=== PATIENT | male | born 1930 | race Caucasian/White ===

== ENCOUNTER 2016-09-22 10:48 | Day surgery (SDC) | payer OTHER, MEDICARE ==
[~2016-09-22 10:48] MED LIST: BUPIVACAINE HCL 0.25 % INJ/PF (2.5 MG/1 ML) 30 ML VIAL ONE; CLINDAMYCIN 600 MG/D5W RTU 600 MG/50 ML RTUPB IV PRN; LIDOCAINE 2% INJ-PF (20 MG/ML) 10 ML AMPUL ONE; ONDANSETRON HCL INJ/PF 4 MG/2 ML SDV ONE; SUCCINYLCHOLINE CHLORIDE INJ 200 MG/10 ML VIAL ONE
[2016-09-22 11:37] LABS: APPEARANCE,URINE SLIGHTLY-CLOUDY; BILIRUBIN,URINE NEGATIVE (NEGATIVE); GLUCOSE, URINE NEGATIVE (NEGATIVE); KETONES,URINE NEGATIVE (NEGATIVE); LEUKOCYTE ESTERASE,URINE NEGATIVE (NEGATIVE); NITRITE,URINE NEGATIVE (NEGATIVE); PROTEIN,URINE NEGATIVE (NEGATIVE); URINE SPECIFIC GRAVITY 1.015; UROBILINOGEN,URINE NEGATIVE mg/dL (<2.0)
[2016-09-22 11:43] LABS: HEMATOCRIT 35.4 % (37.9-51.0); HEMOGLOBIN 12.4 g/dL (13.5-17.0); HGB HCT DIFFERENCE 1.8; MEAN CORPUSCULAR HEMOGLOBIN 31.1 pg (27.0-33.4); MEAN CORPUSCULAR HGB CONC 34.9 g/dL (32.0-36.0); MEAN CORPUSCULAR VOLUME 89 fl (80-97); RED BLOOD COUNT 3.97 10^6/uL (4.35-5.55); RED CELL DISTRIBUTION WIDTH 12.9 % (11.5-14.0); WHITE BLOOD COUNT 3.7 10^3/uL (4.0-10.5)
[2016-09-22 11:48] LABS: PARTIAL THROMBOPLASTIN TIME 28.8 SEC (23.5-35.8)
[2016-09-22 11:52] LABS: ANION GAP 6 (5-19); BLOOD UREA NITROGEN 18 mg/dL (7-20); CALCIUM 10.8 mg/dL (8.4-10.2); CARBON DIOXIDE 28 mmol/L (22-30); CHLORIDE 105 mmol/L (98-107); CREATININE RESULT 1.01 mg/dL (0.52-1.25); GLUCOSE 94 mg/dL (75-110); POTASSIUM 3.9 mmol/L (3.6-5.0); SODIUM 138.9 mmol/L (137-145)
[2016-09-22] MEDS ORDERED: FENTANYL CITRATE INJ/PF 100 MCG/2 ML AMPUL ONE (12:43)
[2016-09-22] MEDS ORDERED: MIDAZOLAM 2 MG/2 ML INJ ONE (12:44)
[2016-09-22] MEDS ORDERED: PROPOFOL INJ 200 MG/20 ML VIAL IV ONE (12:44)
[2016-09-22] MEDS ORDERED: EPHEDRINE SULFATE INJ 50 MG/1 ML AMPULE ONE (12:44)
[2016-09-22] MEDS ORDERED: INFLUENZA ADLT QUAD (36MOS+) 2016-17 VAC 0.5 ML SYR IM PRN (13:17)
[2016-09-22] MEDS ORDERED: FENTANYL CITRATE INJ/PF 100 MCG/2 ML AMPUL IV PRN ×3 (14:02)
[2016-09-22] MEDS ORDERED: MORPHINE SULFATE 10 MG/ML INJ IV PRN (14:02)
[2016-09-22] MEDS ORDERED: PROMETHAZINE HCL INJ 25 MG/1 ML VIAL IV PRN ×2 (14:02)
[2016-09-22] MEDS ORDERED: MEPERIDINE HCL/PF INJ 25 MG/1 ML DISP.SYRIN IV PRN (14:02)
[2016-09-22] MEDS ORDERED: DIPHENHYDRAMINE HCL 50 MG/ML VIAL IV PRN (14:02)
[2016-09-22] MEDS ORDERED: OXYCODONE-ACETAMINOPHEN 5-325 MG TABLET PO PRN ×2 (14:02)
--- NOTE | 2016-09-22 14:24 | Operative Report ---
Operative Report DATE OF SURGERY: 09/22/16 PREOPERATIVE DIAGNOSIS: Pathologic fracture, right humerus OPERATION: Open biopsy SURGEON: KODAK SOLORZANO ANESTHESIA: GA TISSUE REMOVED OR ALTERED: Tissue to pathology, cultures to microbiology ESTIMATED BLOOD LOSS: 100 PROCEDURE: With the patient in a left lateral decubitus position on the operating table the right upper extremity is prepped and draped in sterile fashion. A sterile tourniquet was applied. Limb was elevated. Tourniquet inflated 250 torr. A longitudinal incision was made over the lateral humeral condyle and sharp dissection is carried incision through the underlying fascia. Deep to the fascia is a large amount of fish flesh type material. It's easily scooped out and sent to pathology.. Cultures are obtained. Turner used to take some deep aspect of this were interfaces with the underlying humerus. The underlying tumors has little in the way of mechanical integrity. This point the wounds irrigated. Gelfoam was placed into the depths of the wound. Superficial bleeding was controlled with hemostasis. The wound is then closed in layers using interrupted Vicryl followed by nylon. A sterile compressive dressing is applied with a posterior splint. The patient's returned to PACU in satisfactory condition.
[2016-09-22] MEDS ORDERED: OXYCODONE HCL IR 5 MG TABLET PO PRN (14:34)
[2016-09-22] MEDS ORDERED: ONDANSETRON 4 MG TAB.RAPDIS SL PRN (14:34)
[2016-09-22 16:40] VITALS: BP 137/75
--- NOTE | 2016-09-22 20:04 | EKG REPORT ---
SEVERITY:- ABNORMAL ECG - SINUS RHYTHM BORDERLINE LEFT AXIS DEVIATION : Confirmed by: Jose Cerrato 22-Sep-2016 20:03:46
== END 2016-09-22 16:35 | disposition home or self-care (01) ==
LOC: OROUT 10:48
PROVIDERS: ATTEND Orthopaedic Surgery
PROC: 0PBF0ZX Excision of Right Humeral Shaft, Open Approach, Diagnostic (ICD-10-PCS; principal; 2016-09-22 13:00)
DX: M84.421A Pathological fracture, right humerus, initial encounter for fracture (principal); C83.34 Diffuse large B-cell lymphoma, lymph nodes of axilla and upper limb; Z88.0 Allergy status to penicillin; Z79.899 Other long term (current) drug therapy; Z23 Encounter for immunization
CPT/HCPCS: 36415; 87070; 87205; 85027; 85610; 85730; 87075; 80048; 81001; 88342 ×2; 88341 ×2; 88305 ×2; 71010; 90686; 93005; 93010; 20245; 90471; J2250; J3010; J0330; J2405; J2704; J3490; 1710

== ENCOUNTER → 2016-10-12 | Outpatient (CLI) | payer MEDICARE, OTHER | LOC: RAD 17:56 | PROVIDERS: ATTEND Internal Medicine | DX: C83.38 Diffuse large B-cell lymphoma, lymph nodes of multiple sites (principal) | CPT/HCPCS: 78815; A9552 ==

== ENCOUNTER → 2017-01-14 | Outpatient (CLI) | payer MEDICARE, OTHER ==
--- NOTE | 2017-01-14 15:49 | RADIOLOGY REPORT (SQ) ---
EXAM DESCRIPTION: ELBOW RIGHT AP/LAT COMPLETED DATE/TIME: 01/14/2017 3:38 pm REASON FOR STUDY: PAIN IN RIGHT ELBOW M25.521 PAIN IN RIGHT ELBOW COMPARISON: None. NUMBER OF VIEWS: Two views. TECHNIQUE: AP and lateral radiographic images acquired of the right elbow. LIMITATIONS: None. FINDINGS: MINERALIZATION: Osteopenia. BONES: There appears to be a chronic fracture/destructive bony changes involving the distal right hum erus per report patient had fracture of this area June 2016. No comparison images are available. These changes do appear to be somewhat chronic. No other fractures are identified. JOINT: Degenerative changes noted in the elbow joint. Small put joint effusion. SOFT TISSUES: Soft tissue swelling about the elbow. No radiopaque foreign body. OTHER: No other significant finding. IMPRESSION: There is significant irregularity of the distal right humerus which may be related to pr ior fracture with subsequent bony remodeling as per patient there was a fracture this area in 2015 though no comparison images are available. This could also represent destructive bony lesions related to disease. No other fractures are identified. There is significant degenerative changes o f the elbow joint with small joint effusion. There is significant soft tissue swelling about the elb ow. TECHNICAL DOCUMENTATION: JOB ID: [id number] [employer]- All Rights Reserved
--- NOTE | 2017-01-14 15:53 | RADIOLOGY REPORT (SQ) ---
EXAM DESCRIPTION: FOREARM RIGHT COMPLETED DATE/TIME: 01/14/2017 3:38 pm REASON FOR STUDY: PAIN IN RIGHT ELBOW M25.521 PAIN IN RIGHT ELBOW COMPARISON: None. NUMBER OF VIEWS: Two views. TECHNIQUE: Two radiographic images acquired of the right forearm, including elbow and wrist in at le ast one projection. LIMITATIONS: None. FINDINGS: MINERALIZATION: Osteopenia. BONES: Do partially visualized destructive bony changes/ fracture with subsequent remodeling of the d istal humerus are partially visualized on this study. Degenerative changes noted in the elbow joint. No acute fracture dislocation identified within the forearm. SOFT TISSUES: Significant soft tissue swelling about the elbow joint. No radiopaque foreign body pre OTHER: No other significant finding. IMPRESSION: No acute fracture dislocation identified in the forearm. The destructive versus fractur e with bony remodeling in the distal right humerus are partially visualized on this study and better described on the dedicated elbow film. Soft tissue swelling about the elbow noted. Osteopenia. TECHNICAL DOCUMENTATION: JOB ID: [id number] [employer]- All Rights Reserved
== END ==
LOC: RAD 15:13
PROVIDERS: ATTEND Specialist
DX: M25.521 Pain in right elbow (principal); M85.831 Other specified disorders of bone density and structure, right forearm

== ENCOUNTER → 2017-01-21 | Outpatient (CLI) | payer MEDICARE, OTHER ==
--- NOTE | 2017-01-21 12:44 | XCELERA REPORT ---
[address] [address] Upper Extremity Venous Evaluation Name: NAILA ENGLISH Age: 86 yrs Gender: Male : 1930 Patient Status: Outpatient Patient Location: Study Date: 01/21/2017 10:48 AM Procedure: Unilateral duplex scan of the right upper extremity veins was performed, including responses to compression and other maneuvers. Reason For Study: RUE PAIN, SWELLING Ordering Physician: WIL HODGE Performed By: Linda Sawyer Right Side Venous Evaluation Normal vessel filling wall to wall, compression and augmentation as well as Colour flow down to the forearm veins. Interpretation Summary No duplex evidence of DVT or obstruction in the right upper extremity. : WIL HODGE > James Llanes
== END ==
LOC: SP 10:28
PROVIDERS: ATTEND Internal Medicine
DX: M79.609 Pain in unspecified limb (principal); M79.89 Other specified soft tissue disorders
CPT/HCPCS: 93971

== ENCOUNTER 2017-02-11 09:49 | Inpatient (IN) | payer MEDICARE, OTHER ==
[2017-02-11 12:21] LABS: ABSOLUTE EOSINOPHILS # (AUTO) 0.1 10^3/uL (0.0-0.6); ABSOLUTE LYMPHOCYTES (AUTO) 0.6 10^3/uL (0.5-4.7); ABSOLUTE MONOCYTES (AUTO) 0.9 10^3/uL (0.1-1.4); ABSOLUTE NEUT (AUTO) 3.9 10^3/uL (1.7-8.2); BASOPHILS % (AUTO) 0.6 % (0-2); HEMOGLOBIN 11.8 g/dL (13.5-17.0); HGB HCT DIFFERENCE 0.4; LYMPHOCYTES % (AUTO) 10.6 % (13-45); MEAN CORPUSCULAR HEMOGLOBIN 30.1 pg (27.0-33.4); MEAN CORPUSCULAR HGB CONC 33.7 g/dL (32.0-36.0); MEAN CORPUSCULAR VOLUME 89 fl (80-97); MONOCYTES % (AUTO) 17.3 % (3-13); RED BLOOD COUNT 3.92 10^6/uL (4.35-5.55); RED CELL DISTRIBUTION WIDTH 14.2 % (11.5-14.0); SEGMENTED NEUTROPHILS % (AUTO) 70.5 % (42-78); WHITE BLOOD COUNT 5.5 10^3/uL (4.0-10.5)
[2017-02-11 12:27] LABS: PROTHROMBIN TIME 13.3 SEC (11.4-15.4)
[2017-02-11 12:28] LABS: PARTIAL THROMBOPLASTIN TIME 31.6 SEC (23.5-35.8)
[2017-02-11] MEDS ORDERED: ACETAMINOPHEN 325 MG TABLET PO PRN (12:35)
[2017-02-11] MEDS ORDERED: ONDANSETRON HCL INJ/PF 4 MG/2 ML SDV IV PRN (12:40)
[2017-02-11 12:42] LABS: ANION GAP 10 (5-19); BLOOD UREA NITROGEN 21 mg/dL (7-20); CALCIUM 8.7 mg/dL (8.4-10.2); CARBON DIOXIDE 24 mmol/L (22-30); CHLORIDE 101 mmol/L (98-107); CREATININE RESULT 1.03 mg/dL (0.52-1.25); GLUCOSE 68 mg/dL (75-110); POTASSIUM 3.9 mmol/L (3.6-5.0); SODIUM 134.5 mmol/L (137-145)
[2017-02-11] MEDS ORDERED: VANCOMYCIN HCL INJ 1000 MG VIAL IV SCH (12:45)
--- NOTE | 2017-02-11 13:09 | PDOC H&P ---
History of Present Illness Admission Date/PCP: 02/11/17 09:49 WIL HODGE MD Patient complains of: Pain and swelling on the right upper extremity History of Present Illness: NAILA ENGLISH is a 86 year old male, with history of B-cell lymphoma sustained a pathologic fracture of the upper extremity several months ago were a biopsy revealed B-cell lymphoma on the fracture site on September 2016. Patient at that time had some swelling. Patient was started on chemotherapy and started to improve from then. Patient had an episode of a fall last month without any significant injury as reported by the patient and the family on x-rays. 3 weeks ago the patient accidentally jammed his right upper extremity to the door and again no injuries were noted on films. Patient started to develop increasing pain and swelling since then with redness and pitting edema. There is no definite chills or fever nor any purulent drainage. Patient apparently had some scabbing and open wound initially that were healing. Patient was started on antibiotic for cellulitis. Patient had a venous Doppler performed 2- 3 weeks ago showing no evidence of deep venous thrombosis. However despite the antibiotics the swelling persisted and increased as well as the discomfort. The patient was seen by his oncologist and eventually directly admitted the patient after failing antibiotic therapy. His chemotherapy dose was held. Past Medical History Cardiac Medical History: Denies: Coronary Artery Disease, Myocardial Infarction, Hypertension Pulmonary Medical History: Denies: Asthma, Bronchitis, Chronic Obstructive Pulmonary Disease (COPD), Pneumonia Neurological Medical History: Denies: Seizures Musculoskeltal Medical History: Denies: Arthritis Hematology: Denies: Anemia Past Surgical History Past Surgical History: Reports: Herniorrhaphy, Other - Cataract surgery Social History Information Source: Patient Smoking Status: Never Smoker Frequency of Alcohol Use: Rare Hx Recreational Drug Use: No Drugs: None Hx Prescription Drug Abuse: No Family History Family History: CAD Parental Family History Reviewed: Yes Children Family History Reviewed: Yes Sibling(s) Family History Reviewed.: Yes Medication/Allergy Home Medications: Finasteride [Proscar 5 mg Tablet] 5 mg PO DAILY 02/11/17 Pravastatin Sodium [Pravachol] 20 mg PO DAILY 02/11/17 Allergies/Adverse Reactions: Penicillins Allergy (Verified 09/22/16 14:34) Review of Systems Constitutional: ABSENT: chills, fever(s), headache(s), weight gain, weight loss Eyes: ABSENT: visual disturbances Ears: ABSENT: hearing changes Cardiovascular: PRESENT: edema - Right upper extremity. ABSENT: chest pain, dyspnea on exertion, orthropnea, palpitations Respiratory: ABSENT: cough, dyspnea, hemoptysis, sputum Gastrointestinal: ABSENT: abdominal pain, constipation, diarrhea, dysphagia, hematemesis, hematochezia, melena, nausea, vomiting Genitourinary: ABSENT: dysuria, hematuria Musculoskeletal: ABSENT: joint swelling Integumentary: ABSENT: pruritus Neurological: ABSENT: abnormal gait, abnormal speech, confusion, dizziness, focal weakness, syncope Psychiatric: ABSENT: anxiety, depression, homidical ideation, suicidal ideation Endocrine: ABSENT: cold intolerance, heat intolerance, polydipsia, polyuria Hematologic/Lymphatic: ABSENT: easy bleeding, easy bruising Physical Exam Vital Signs: Temp Pulse Resp BP Pulse Ox 97.2 F 91 20 99/62 L 97 02/11/17 10:23 02/11/17 10:23 02/11/17 10:23 02/11/17 10:23 02/11/17 10:23 Intake & Output 02/10/17 02/11/17 02/12/17 06:59 06:59 06:59 Weight 76.289 kg General appearance: PRESENT: no acute distress, cooperative, well-nourished Head exam: PRESENT: atraumatic, normocephalic Eye exam: PRESENT: conjunctiva pink, EOMI, PERRLA. ABSENT: scleral icterus Ear exam: PRESENT: normal external ear exam. ABSENT: drainage Mouth exam: PRESENT: moist, neck supple, tongue midline Neck exam: ABSENT: carotid bruit, JVD, lymphadenopathy, thyromegaly Respiratory exam: PRESENT: clear to auscultation mayur. ABSENT: rales, rhonchi, wheezes Cardiovascular exam: PRESENT: RRR, +S1, +S2. ABSENT: diastolic murmur, rubs, systolic murmur Pulses: PRESENT: normal dorsalis pedis pul Vascular exam: PRESENT: normal capillary refill GI/Abdominal exam: PRESENT: normal bowel sounds, soft. ABSENT: distended, guarding, mass, organolmegaly, rebound, tenderness Rectal exam: PRESENT: deferred Extremities exam: PRESENT: full ROM, +2 edema - Right upper extremity with significant induration and nodularity.. ABSENT: calf tenderness, clubbing, pedal edema Neurological exam: PRESENT: alert, awake, oriented to person, oriented to place , oriented to time, oriented to situation Psychiatric exam: PRESENT: appropriate affect, normal mood. ABSENT: homicidal ideation, suicidal ideation Focused psych exam: ABSENT: delusional Skin exam: PRESENT: dry, erythema - Right upper extremity from elbow to the forearm, intact, warm. ABSENT: cyanosis, rash Results Laboratory Results: 02/11/17 12:03 02/11/17 12:03 02/11/17 02/11/17 12:03 12:03 WBC 5.5 RBC 3.92 L Hgb 11.8 L Hct 35.0 L MCV 89 MCH 30.1 MCHC 33.7 RDW 14.2 H Plt Count 170 Seg Neutrophils % 70.5 Lymphocytes % 10.6 L Monocytes % 17.3 H Eosinophils % 1.0 Basophils % 0.6 Absolute Neutrophils 3.9 Absolute Lymphocytes 0.6 Absolute Monocytes 0.9 Absolute Eosinophils 0.1 Absolute Basophils 0.0 Sodium 134.5 L Potassium 3.9 Chloride 101 Carbon Dioxide 24 Anion Gap 10 BUN 21 H Creatinine 1.03 Est GFR ( Amer) > 60 Est GFR (Non-Af Amer) > 60 Glucose 68 L Calcium 8.7 Assessment & Plan - Diagnosis (1) Cellulitis of right upper extremity Is this a current diagnosis for this admission?: Yes (2) Abscess of right upper extremity Is this a current diagnosis for this admission?: Yes (3) Pathologic fracture Qualifiers: Pathology associated with fracture: neoplastic disease Site of pathological fracture: unspecified site Encounter type: sequela Qualified Code(s): M84.50XS - Pathological fracture in neoplastic disease, unspecified site, sequela Is this a current diagnosis for this admission?: Yes (4) BPH (benign prostatic hyperplasia) Qualifiers: Lower urinary tract symptom presence: unspecified whether lower urinary tract symptoms present Qualified Code(s): N40.0 - Benign prostatic hyperplasia without lower urinary tract symptoms Is this a current diagnosis for this admission?: Yes (5) B-cell lymphoma Qualifiers: B-cell lymphoma type: unspecified B-cell Lymphoma site: unspecified region Qualified Code(s): C85.10 - Unspecified B-cell lymphoma, unspecified site Is this a current diagnosis for this admission?: Yes - Time Time Spent: 50 to 70 Minutes - Inpatient Certification Based on my medical assessment, after consideration of the patient's comorbidities, presenting symptoms, or acuity I expect that the services needed warrant INPATIENT care.: Yes I certify that my determination is in accordance with my understanding of Medicare's requirements for reasonable and necessary INPATIENT services [42 CFR 412.3e].: Yes Medical Necessity: Failure to Improve With Outpatient Therapy, Need for IV Antibiotics, Risk of Complication if Not Cared For in Hospital Post Hospital Care: D/C Spray Drier Documentation - Plan Summary Plan Summary: Patient will be admitted to telemetry floor. We will culture the patient's blood and begin intravenous antibiotic with Invanz and vancomycin. We will consult general surgery for evaluation for abscess and incision and drainage. In the meantime we will consult Dr. Hodge for the lymphoma as well. Patient will be on DVT prophylaxis. We will continue his home medications. Further testing depends in the initial evaluation and response to treatment as outlined above.
[2017-02-11] MEDS: VANCOMYCIN HCL 750 MG in DEXTROSE 5%-WATER 250 ML IV SCH (13:54)
[2017-02-11] MEDS: NORMAL SALINE 1000 ML 1,000 ML IV PRN (13:55)
[2017-02-11] MEDS ORDERED: ERTAPENEM SODIUM INJ 1 GM VIAL IV SCH (15:00)
[2017-02-11] MEDS: ERTAPENEM SODIUM 1 GM in NORMAL SALINE 50 ML IV SCH (15:55)
[2017-02-11] MEDS: HYDROCODONE/ACETAMINOPHEN 5-325 MG TABLET PO PRN ×2 (16:08→20:03)
[2017-02-11] MEDS: DOCUSATE SODIUM 100 MG CAPSULE PO SCH (17:56)
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
[2017-02-12] MEDS: HYDROCODONE/ACETAMINOPHEN 5-325 MG TABLET PO PRN ×6 (00:13→23:51)
[2017-02-12] MEDS: VANCOMYCIN HCL 750 MG in DEXTROSE 5%-WATER 250 ML IV SCH ×2 (02:40→13:17)
[2017-02-12] MEDS: LANSOPRAZOLE 30 MG TAB.RAP.DR PO SCH (06:07)
[2017-02-12 06:51] LABS: HEMATOCRIT 34.3 % (37.9-51.0); HEMOGLOBIN 11.4 g/dL (13.5-17.0); HGB HCT DIFFERENCE -0.1; MEAN CORPUSCULAR HEMOGLOBIN 30.3 pg (27.0-33.4); MEAN CORPUSCULAR HGB CONC 33.3 g/dL (32.0-36.0); MEAN CORPUSCULAR VOLUME 91 fl (80-97); RED BLOOD COUNT 3.77 10^6/uL (4.35-5.55); RED CELL DISTRIBUTION WIDTH 14.6 % (11.5-14.0); WHITE BLOOD COUNT 4.1 10^3/uL (4.0-10.5)
[2017-02-12 07:06] LABS: ANION GAP 6 (5-19); BLOOD UREA NITROGEN 16 mg/dL (7-20); CALCIUM 8.9 mg/dL (8.4-10.2); CARBON DIOXIDE 26 mmol/L (22-30); CHLORIDE 104 mmol/L (98-107); CREATININE RESULT 0.91 mg/dL (0.52-1.25); GLUCOSE 71 mg/dL (75-110); POTASSIUM 4.2 mmol/L (3.6-5.0); SODIUM 135.9 mmol/L (137-145)
[2017-02-12 07:09] LABS: BASOPHILS % (MANUAL) 1 % (0-2); EOSINOPHILS % (MANUAL) 4 % (0-6); LYMPHOCYTES % (MANUAL) 5 % (13-45); TOTAL CELLS COUNTED 100
[2017-02-12 07:13] LABS: ANISOCYTOSIS SLIGHT; OVALOCYTES SLIGHT; PLATELET CLUMPS PRESENT; POIKILOCYTOSIS SLIGHT; POLYCHROMASIA SLIGHT; TARGET CELLS SLIGHT
--- NOTE | 2017-02-12 07:58 | PDOC CONSULTATION ---
Consultation Consult Date: 02/12/17 Attending physician:: ZAC MEREDITH Consult reason:: R arm cellulutis, DLBCL of RUE History of Present Illness Admission Date/PCP: 02/11/17 09:49 WIL HODGE MD Patient complains of: R arm pain, swelling History of Present Illness: 86-year-old male well-known to our oncology clinic who originally presented about 4 months ago with pathologic fracture of the right distal humerus. Initially it was felt to be an osteoporotic fracture but ultimately the patient was referred to Dr. Yang who did a bone biopsy, and this indicated diffuse large B-cell lymphoma, this diagnosis was confirmed by [facility], because of that diagnosis we initiated him on chemotherapy with Rituxan, bendamustine. He is actually been tolerating the therapy very well. Initially the arm was very swollen and the swelling went down, he began getting back some utility of his arm, but the swelling never fully went back to normal. Over the last 2 weeks however, the swelling is increased considerably, and over the last 7 days the arm has doubled in size. Last week he did place him on oral antibiotics. Prior to that we had ultrasound of the upper extremity as well as x-rays done, ultrasound was negative for blood clots, x-rays were negative for fracture. I was concerned that he had some sort of resistant cellulitis so we admitted him for IV antibiotics under the hospitalist team. He has been seen by general surgery, he is also going to be seen by orthopedic surgery today. 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 Musculoskeltal Medical History: Denies: Arthritis Hematology: Denies: Anemia Past Surgical History Past Surgical History: Reports: Herniorrhaphy, Other - Cataract surgery, biopsy of the right upper humerus Social History Smoking Status: Never Smoker Frequency of Alcohol Use: Rare Hx Recreational Drug Use: No Drugs: None Hx Prescription Drug Abuse: No Family History Family History: CAD Parental Family History Reviewed: Yes Children Family History Reviewed: Yes Sibling(s) Family History Reviewed.: Yes Medication/Allergy Home Medications: Finasteride [Proscar 5 mg Tablet] 5 mg PO DAILY 02/11/17 Hydrocodone/Acetaminophen [[place] 5-325 Tablet] 1 each PO Q4 PRN 02/11/17 Pravastatin Sodium [Pravachol] 20 mg PO DAILY 02/11/17 Allergies/Adverse Reactions: Penicillins Allergy (Verified 09/22/16 14:34) Review of Systems Constitutional: ABSENT: chills, fever(s), headache(s), weight gain, weight loss Eyes: ABSENT: visual disturbances Ears: ABSENT: hearing changes Cardiovascular: ABSENT: chest pain, dyspnea on exertion, edema, orthropnea, palpitations Respiratory: ABSENT: cough, hemoptysis Gastrointestinal: ABSENT: abdominal pain, constipation, diarrhea, hematemesis, hematochezia, nausea, vomiting Genitourinary: ABSENT: dysuria, hematuria Musculoskeletal: PRESENT: other - Right arm pain Integumentary: ABSENT: rash, wounds Neurological: ABSENT: abnormal gait, abnormal speech, confusion, dizziness, focal weakness, syncope Psychiatric: ABSENT: anxiety, depression, homidical ideation, suicidal ideation Endocrine: ABSENT: cold intolerance, heat intolerance, polydipsia, polyuria Hematologic/Lymphatic: ABSENT: easy bleeding, easy bruising Physical Exam Vital Signs: Temp Pulse Resp BP Pulse Ox 97.6 F 81 20 108/63 94 02/12/17 03:51 02/12/17 07:00 02/12/17 03:51 02/12/17 03:51 02/12/17 03:51 Intake & Output 02/11/17 02/12/17 02/13/17 06:59 06:59 06:59 Intake Total 1390 120 Balance 1390 120 Weight 78 kg General appearance: PRESENT: no acute distress, well-developed, well-nourished Head exam: PRESENT: atraumatic, normocephalic Eye exam: PRESENT: conjunctiva pink, EOMI, PERRLA. ABSENT: scleral icterus Ear exam: PRESENT: normal external ear exam Mouth exam: PRESENT: moist, tongue midline Neck exam: ABSENT: carotid bruit, JVD, lymphadenopathy, thyromegaly Respiratory exam: PRESENT: clear to auscultation mayur. ABSENT: rales, rhonchi, wheezes Cardiovascular exam: PRESENT: RRR. ABSENT: diastolic murmur, rubs, systolic murmur Pulses: PRESENT: normal dorsalis pedis pul Vascular exam: PRESENT: normal capillary refill GI/Abdominal exam: PRESENT: normal bowel sounds, soft. ABSENT: distended, guarding, mass, organolmegaly, rebound, tenderness Rectal exam: PRESENT: deferred Extremities exam: PRESENT: other Musculoskeletal exam: PRESENT: other - Extreme right upper extremity swelling Neurological exam: PRESENT: alert, awake, oriented to person, oriented to place , oriented to time, oriented to situation, CN II-XII grossly intact. ABSENT: motor sensory deficit Psychiatric exam: PRESENT: appropriate affect, normal mood. ABSENT: homicidal ideation, suicidal ideation Skin exam: PRESENT: dry, intact, warm. ABSENT: cyanosis, rash Results Laboratory Results: 02/12/17 06:08 02/12/17 06:08 02/11/17 02/11/17 02/12/17 12:03 12:03 06:08 WBC 5.5 4.1 RBC 3.92 L 3.77 L Hgb 11.8 L 11.4 L Hct 35.0 L 34.3 L MCV 89 91 MCH 30.1 30.3 MCHC 33.7 33.3 RDW 14.2 H 14.6 H Plt Count 170 164 Seg Neutrophils % 70.5 Not Reportable Lymphocytes % 10.6 L Not Reportable Monocytes % 17.3 H Not Reportable Eosinophils % 1.0 Not Reportable Basophils % 0.6 Not Reportable Absolute Neutrophils 3.9 Not Reportable Absolute Lymphocytes 0.6 Not Reportable Absolute Monocytes 0.9 Not Reportable Absolute Eosinophils 0.1 Not Reportable Absolute Basophils 0.0 Not Reportable Sodium 134.5 L Potassium 3.9 Chloride 101 Carbon Dioxide 24 Anion Gap 10 BUN 21 H Creatinine 1.03 Est GFR ( Amer) > 60 Est GFR (Non-Af Amer) > 60 Glucose 68 L Calcium 8.7 02/12/17 06:08 WBC RBC Hgb Hct MCV MCH MCHC RDW Plt Count Seg Neutrophils % Lymphocytes % Monocytes % Eosinophils % Basophils % Absolute Neutrophils Absolute Lymphocytes Absolute Monocytes Absolute Eosinophils Absolute Basophils Sodium 135.9 L Potassium 4.2 Chloride 104 Carbon Dioxide 26 Anion Gap 6 BUN 16 Creatinine 0.91 Est GFR ( Amer) > 60 Est GFR (Non-Af Amer) > 60 Glucose 71 L Calcium 8.9 Assessment & Plan - Diagnosis (1) Cellulitis of right upper extremity Is this a current diagnosis for this admission?: YesPlan: Initially concern of infection, now on broad-spectrum antibiotics with ertapenem and vancomycin, cultures thus far negative but would continue both antibiotics until cultures are negative for 48 hours. It could be that it is only upper extremity lymphedema that is the cause, I have asked for Dr. Yang to come see him, I wonder if something like a CT of the upper extremity would be useful. 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 We will hold this cycle until he gets out of the hospital. - Time Time Spent: Greater than 70 Minutes Critical Time spent with patient: 35 or more minutes - Inpatient Certification Based on my medical assessment, after consideration of the patient's comorbidities, presenting symptoms, or acuity I expect that the services needed warrant INPATIENT care.: Yes I certify that my determination is in accordance with my understanding of Medicare's requirements for reasonable and necessary INPATIENT services [42 CFR 412.3e].: Yes Medical Necessity: Need for IV Antibiotics, Risk of Complication if Not Cared For in Hospital
[2017-02-12] MEDS: ENOXAPARIN SODIUM INJ 40 MG/0.4 ML DISP.SYRIN SUBCUT SCH (10:36)
[2017-02-12] MEDS: FINASTERIDE 5 MG TABLET PO SCH (10:37)
[2017-02-12] MEDS: DOCUSATE SODIUM 100 MG CAPSULE PO SCH ×2 (10:37→17:34)
--- NOTE | 2017-02-12 14:20 | PDOC PROGRESS REPORT ---
Subjective Progress Note for:: 02/12/17 Subjective:: Patient continues to have swelling on the upper extremity. No reported temperature spikes. Patient denies diarrhea. Surgery evaluated the patient and thinks it is lymphedema. Physical Exam Vital Signs: Temp Pulse Resp BP Pulse Ox 98.2 F 85 16 105/58 L 94 02/12/17 11:15 02/12/17 11:15 02/12/17 11:15 02/12/17 11:15 02/12/17 11:15 Intake & Output 02/11/17 02/12/17 02/13/17 06:59 06:59 06:59 Intake Total 1390 357 Balance 1390 357 Weight 78 kg General appearance: PRESENT: no acute distress, cooperative Head exam: PRESENT: normocephalic Eye exam: PRESENT: EOMI Mouth exam: PRESENT: moist, neck supple Neck exam: ABSENT: JVD Respiratory exam: PRESENT: clear to auscultation mayur Cardiovascular exam: PRESENT: RRR GI/Abdominal exam: PRESENT: soft. ABSENT: distended, tenderness Extremities exam: PRESENT: +2 edema - Right upper extremity, redness unchanged Neurological exam: PRESENT: alert, awake, oriented to situation Skin exam: PRESENT: dry, warm. ABSENT: cyanosis Results Laboratory Results: 02/12/17 06:08 02/12/17 06:08 02/12/17 02/12/17 06:08 06:08 WBC 4.1 RBC 3.77 L Hgb 11.4 L Hct 34.3 L MCV 91 MCH 30.3 MCHC 33.3 RDW 14.6 H Plt Count 164 Seg Neutrophils % Not Reportable Lymphocytes % Not Reportable Monocytes % Not Reportable Eosinophils % Not Reportable Basophils % Not Reportable Absolute Neutrophils Not Reportable Absolute Lymphocytes Not Reportable Absolute Monocytes Not Reportable Absolute Eosinophils Not Reportable Absolute Basophils Not Reportable Sodium 135.9 L Potassium 4.2 Chloride 104 Carbon Dioxide 26 Anion Gap 6 BUN 16 Creatinine 0.91 Est GFR ( Amer) > 60 Est GFR (Non-Af Amer) > 60 Glucose 71 L Calcium 8.9 Assessment & Plan - Diagnosis (1) Cellulitis of right upper extremity Is this a current diagnosis for this admission?: Yes (2) Abscess of right upper extremity Is this a current diagnosis for this admission?: Yes (3) Pathologic fracture Qualifiers: Pathology associated with fracture: neoplastic disease Site of pathological fracture: unspecified site Encounter type: sequela Qualified Code(s): M84.50XS - Pathological fracture in neoplastic disease, unspecified site, sequela Is this a current diagnosis for this admission?: Yes (4) BPH (benign prostatic hyperplasia) Qualifiers: Lower urinary tract symptom presence: unspecified whether lower urinary tract symptoms present Qualified Code(s): N40.0 - Benign prostatic hyperplasia without lower urinary tract symptoms Is this a current diagnosis for this admission?: Yes (5) B-cell lymphoma Qualifiers: B-cell lymphoma type: diffuse large B-cell Lymphoma site: extranodal excluding spleen and other solid organs Qualified Code(s): 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 Increase analgesic. Continue supportive care. Case discussed with Dr. Abreu.
[2017-02-12] MEDS ORDERED: ONDANSETRON HCL INJ/PF 4 MG/2 ML SDV IV PRN (14:51)
[2017-02-12] MEDS: ERTAPENEM SODIUM 1 GM in NORMAL SALINE 50 ML IV SCH (15:54)
[2017-02-12] MEDS ORDERED: ATORVASTATIN CALCIUM 10 MG TABLET PO SCH (22:00)
[2017-02-12] MEDS: NORMAL SALINE 1000 ML 1,000 ML IV PRN (23:56)
[2017-02-13] MEDS: VANCOMYCIN HCL 750 MG in DEXTROSE 5%-WATER 250 ML IV SCH (02:34)
[2017-02-13] MEDS: HYDROCODONE/ACETAMINOPHEN 5-325 MG TABLET PO PRN ×2 (05:03→09:32)
[2017-02-13] MEDS: LANSOPRAZOLE 30 MG TAB.RAP.DR PO SCH (05:54)
--- NOTE | 2017-02-13 07:00 | PDOC CONSULTATION ---
Consultation Consult Date: 02/13/17 History of Present Illness Admission Date/PCP: 02/11/17 09:49 WIL HODGE MD History of Present Illness: Patient is an 86-year-old white male who initially presented with pathologic fracture right distal humerus secondary to primary lymphoma of bone. the patient was started therapy regimen and showed improvement in the swelling in the function of the right upper extremity. More recently he was seen in my office approximately 2 weeks ago point my impression was that things were not significantly different than previously with respect to his edema and upper extremity function. He is now admitted with progressive swelling and decreasing function of the right upper extremity. This is presumed to be bacterial as in the form of the cellulitis and the patient's been started on antibiotics. 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 Musculoskeltal Medical History: Denies: Arthritis Hematology: Denies: Anemia Past Surgical History Past Surgical History: Reports: Herniorrhaphy, Other - Cataract surgery, biopsy of the right upper humerus Social History Information Source: Patient, [facility]aphne Office, [facility] Records Smoking Status: Never Smoker Frequency of Alcohol Use: Rare Hx Recreational Drug Use: No Drugs: None Hx Prescription Drug Abuse: No Family History Family History: CAD Parental Family History Reviewed: No Children Family History Reviewed: No Sibling(s) Family History Reviewed.: No Medication/Allergy Home Medications: Finasteride [Proscar 5 mg Tablet] 5 mg PO DAILY 02/11/17 Hydrocodone/Acetaminophen [[place] 5-325 Tablet] 1 each PO Q4 PRN 02/11/17 Pravastatin Sodium [Pravachol] 20 mg PO DAILY 02/11/17 Allergies/Adverse Reactions: Penicillins Allergy (Verified 09/22/16 14:34) Review of Systems All systems: reviewed and no additional remarkable complaints except as stated - Reports no constitutional symptoms including fever sweats or chills. Physical Exam Vital Signs: Temp Pulse Resp BP Pulse Ox 36.6 C 88 20 109/59 L 92 02/13/17 05:08 02/13/17 05:08 02/13/17 05:08 02/13/17 05:08 02/13/17 05:08 Intake & Output 02/11/17 02/12/17 02/13/17 06:59 06:59 06:59 Intake Total 1390 1812 Output Total 0 Balance 1390 1812 Weight 78 kg 79.1 kg General appearance: PRESENT: no acute distress Head exam: PRESENT: normocephalic Eye exam: PRESENT: EOMI Respiratory exam: PRESENT: unlabored Cardiovascular exam: PRESENT: RRR Pulses: PRESENT: normal radial pulses Vascular exam: PRESENT: normal capillary refill GI/Abdominal exam: PRESENT: soft Rectal exam: PRESENT: deferred Extremities exam: PRESENT: other - Upper extremity is wrapped distally. Beginning at the upper forearm and extending into the upper arm there is considerable edema which is increased from what I remember several weeks ago. There is also several areas of ulceration over the lateral and dorsal aspects of the distal upper arm just proximal to the antecubital fossa that I do not remember being there 2 weeks ago. hAnd function is preserved.. Neurological exam: PRESENT: alert, awake, oriented to person, oriented to place , oriented to time, oriented to situation. ABSENT: motor sensory deficit Psychiatric exam: PRESENT: appropriate affect, normal mood. ABSENT: homicidal ideation, suicidal ideation Results Laboratory Results: 02/12/17 06:08 02/12/17 06:08 02/12/17 02/12/17 06:08 06:08 WBC 4.1 RBC 3.77 L Hgb 11.4 L Hct 34.3 L MCV 91 MCH 30.3 MCHC 33.3 RDW 14.6 H Plt Count 164 Sodium 135.9 L Potassium 4.2 Chloride 104 Carbon Dioxide 26 Anion Gap 6 BUN 16 Creatinine 0.91 Est GFR ( Amer) > 60 Est GFR (Non-Af Amer) > 60 Glucose 71 L Calcium 8.9 Status: Imported from PACS Assessment & Plan - Diagnosis (1) Abscess of right upper extremity Is this a current diagnosis for this admission?: YesPlan: 86-year-old white male with a pathologic fracture right distal humerus secondary to primary lymphoma of bone. The patient was approximately a year post fracture before the appropriate diagnosis was made. Associated with that year delay there was considerable swelling about the upper extremity and consideration had been made of this being an infectious process by the caregivers at that time. There has been progression of the swelling since I saw the patient 2-3 weeks ago in the office. Is also been the development of ulcers in the skin. My clinical impression at this is not an infectious process. I have ordered sedimentation rate and C-reactive protein to provide a little bit more information. I am concerned that this represents tumor progression. - Time Time Spent: 50 to 70 Minutes Anticipated discharge: Home with Homehealth Within: Other
[2017-02-13 07:28] LABS: ABSOLUTE EOSINOPHILS # (AUTO) 0.1 10^3/uL (0.0-0.6); ABSOLUTE LYMPHOCYTES (AUTO) 0.6 10^3/uL (0.5-4.7); ABSOLUTE MONOCYTES (AUTO) 0.9 10^3/uL (0.1-1.4); BASOPHILS % (AUTO) 0.5 % (0-2); HEMOGLOBIN 12.1 g/dL (13.5-17.0); HGB HCT DIFFERENCE 0.3; MEAN CORPUSCULAR HEMOGLOBIN 30.4 pg (27.0-33.4); MEAN CORPUSCULAR HGB CONC 33.7 g/dL (32.0-36.0); MEAN CORPUSCULAR VOLUME 90 fl (80-97); MONOCYTES % (AUTO) 16.6 % (3-13); RED BLOOD COUNT 3.99 10^6/uL (4.35-5.55); RED CELL DISTRIBUTION WIDTH 14.6 % (11.5-14.0); SEGMENTED NEUTROPHILS % (AUTO) 70.9 % (42-78); WHITE BLOOD COUNT 5.7 10^3/uL (4.0-10.5)
[2017-02-13 07:48] LABS: ANION GAP 6 (5-19); BLOOD UREA NITROGEN 19 mg/dL (7-20); C-REACTIVE PROTEIN 50.6 mg/L (<10.0); CALCIUM 8.9 mg/dL (8.4-10.2); CARBON DIOXIDE 23 mmol/L (22-30); CHLORIDE 103 mmol/L (98-107); CREATININE RESULT 0.96 mg/dL (0.52-1.25); GLUCOSE 90 mg/dL (75-110); SODIUM 132.4 mmol/L (137-145)
--- NOTE | 2017-02-13 07:53 | PDOC PROGRESS REPORT ---
Subjective Progress Note for:: 02/13/17 Subjective:: No acute events overnight. Spoke with Dr. Yang, he feels this maybe tumor progression, no surgical intervention possible, does not feel it is cellulitis as atbx have not improved course up to now. Physical Exam Vital Signs: Temp Pulse Resp BP Pulse Ox 97.9 F 88 20 109/59 L 92 02/13/17 05:08 02/13/17 05:08 02/13/17 05:08 02/13/17 05:08 02/13/17 05:08 Intake & Output 02/12/17 02/13/17 02/14/17 06:59 06:59 06:59 Intake Total 1390 2462 Output Total 0 Balance 1390 2462 Weight 78 kg 79.1 kg General appearance: PRESENT: no acute distress, well-developed, well-nourished Head exam: PRESENT: atraumatic, normocephalic Eye exam: PRESENT: conjunctiva pink, EOMI, PERRLA. ABSENT: scleral icterus Ear exam: PRESENT: normal external ear exam Mouth exam: PRESENT: moist, tongue midline Neck exam: ABSENT: carotid bruit, JVD, lymphadenopathy, thyromegaly Respiratory exam: PRESENT: clear to auscultation mayur. ABSENT: rales, rhonchi, wheezes Cardiovascular exam: PRESENT: RRR. ABSENT: diastolic murmur, rubs, systolic murmur Pulses: PRESENT: normal dorsalis pedis pul Vascular exam: PRESENT: normal capillary refill GI/Abdominal exam: PRESENT: normal bowel sounds, soft. ABSENT: distended, guarding, mass, organolmegaly, rebound, tenderness Rectal exam: PRESENT: deferred Extremities exam: PRESENT: +2 edema, other - RUE Neurological exam: PRESENT: alert, awake, oriented to person, oriented to place , oriented to time, oriented to situation, CN II-XII grossly intact. ABSENT: motor sensory deficit Psychiatric exam: PRESENT: appropriate affect, normal mood. ABSENT: homicidal ideation, suicidal ideation Skin exam: PRESENT: dry, intact, warm. ABSENT: cyanosis, rash Results Laboratory Results: 02/13/17 07:14 02/13/17 07:14 WBC 5.7 RBC 3.99 L Hgb 12.1 L Hct 36.0 L MCV 90 MCH 30.4 MCHC 33.7 RDW 14.6 H Plt Count 177 Seg Neutrophils % 70.9 Lymphocytes % 10.0 L Monocytes % 16.6 H Eosinophils % 2.0 Basophils % 0.5 Absolute Neutrophils 4.0 Absolute Lymphocytes 0.6 Absolute Monocytes 0.9 Absolute Eosinophils 0.1 Absolute Basophils 0.0 Assessment & Plan - Diagnosis (1) Cellulitis of right upper extremity Is this a current diagnosis for this admission?: YesPlan: D/c atbx, d/c home today w/ rx for terri, discussed case w/ Dr. 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
[2017-02-13] MEDS: ENOXAPARIN SODIUM INJ 40 MG/0.4 ML DISP.SYRIN SUBCUT SCH (09:26)
[2017-02-13] MEDS: FINASTERIDE 5 MG TABLET PO SCH (09:26)
[2017-02-13] MEDS: DOCUSATE SODIUM 100 MG CAPSULE PO SCH (09:26)
--- NOTE | 2017-02-13 09:32 | PDOC DISCHARGE SUMMARY ---
General - Admit/Disc Date/PCP Admission Date/Primary Care Provider: 02/11/17 09:49 WIL HODGE MD Discharge Date: 02/13/17 - Discharge Diagnosis (1) Cellulitis of right upper extremity Is this a current diagnosis for this admission?: Yes (2) Abscess of right upper extremity Is this a current diagnosis for this admission?: Yes (3) Pathologic fracture Is this a current diagnosis for this admission?: Yes (4) BPH (benign prostatic hyperplasia) Is this a current diagnosis for this admission?: Yes (5) B-cell lymphoma Is this a current diagnosis for this admission?: Yes - Additional Information Discharge Diet: Regular Discharge Activity: Activity As Tolerated, Balance Activity w/Rest Home Medications: Finasteride [Proscar 5 mg Tablet] 5 mg PO DAILY 02/11/17 Pravastatin Sodium [Pravachol] 20 mg PO DAILY 02/11/17 Docusate Sodium [Colace 100 mg Capsule] 100 mg PO BID capsule 02/13/17 Hydrocodone/Acetaminophen [[place] 10-325 mg Tablet] 1 tab PO Q4H PRN #40 tablet 02/13/17 Additional Information: PET scan as outpatient as scheduled by Dr. Hodge. History of Present Illness Patient complains of: Pain and swelling of the upper extremity on the right History of Present Illness: NAILA ENGLISH is a 86 year old male, with history of B-cell lymphoma sustained a pathologic fracture of the upper extremity several months ago were a biopsy revealed B-cell lymphoma on the fracture site on September 2016. Patient at that time had some swelling. Patient was started on chemotherapy and started to improve from then. Patient had an episode of a fall last month without any significant injury as reported by the patient and the family on x-rays. 3 weeks ago the patient accidentally jammed his right upper extremity to the door and again no injuries were noted on films. Patient started to develop increasing pain and swelling since then with redness and pitting edema. There is no definite chills or fever nor any purulent drainage. Patient apparently had some scabbing and open wound initially that were healing. Patient was started on antibiotic for cellulitis. Patient had a venous Doppler performed 2- 3 weeks ago showing no evidence of deep venous thrombosis. However despite the antibiotics the swelling persisted and increased as well as the discomfort. The patient was seen by his oncologist and eventually directly admitted the patient after failing antibiotic therapy. His chemotherapy dose was held. Hospital Course Hospital Course: The patient was admitted to [facility]. Cultures were performed and to date were negative. Broad-spectrum antibiotic was administered all throughout. Patient remained afebrile and WBC was normal. Patient was evaluated by surgical service and thinks condition related to lymphedema. Orthopedics was likewise consulted who has seen the patient prior due to pathologic fracture reports progression of tumor and lymphedema. At this point hematology oncology service cleared the patient to be discharged. The rest of the hospital stays unremarkable other than titration of pain medication, no temperature spikes were noted. Patient understood and agreeable with the plan as discussed to have a PET scan as outpatient and follow-up with oncology service for the tumor progression. Physical Exam Vital Signs: Temp Pulse Resp BP Pulse Ox 97.3 F 92 16 99/57 L 91 L 02/13/17 07:56 02/13/17 07:56 02/13/17 07:56 02/13/17 07:56 02/13/17 07:56 Intake & Output 02/12/17 02/13/17 02/14/17 06:59 06:59 06:59 Intake Total 1390 2462 Output Total 0 Balance 1390 2462 Weight 78 kg 79.1 kg General appearance: PRESENT: no acute distress, cooperative Head exam: PRESENT: normocephalic Eye exam: PRESENT: EOMI Mouth exam: PRESENT: moist, neck supple Neck exam: ABSENT: JVD Respiratory exam: PRESENT: clear to auscultation mayur. ABSENT: rhonchi, wheezes Cardiovascular exam: PRESENT: RRR. ABSENT: gallop GI/Abdominal exam: PRESENT: normal bowel sounds, soft Extremities exam: PRESENT: +2 edema - Right upper extremity Neurological exam: PRESENT: alert, awake, oriented to person, oriented to place , oriented to time, oriented to situation Skin exam: PRESENT: dry, warm. ABSENT: cyanosis Results Laboratory Results: 02/13/17 07:14 02/13/17 07:14 02/13/17 02/13/17 07: 07:14 WBC 5.7 RBC 3.99 L Hgb 12.1 L Hct 36.0 L MCV 90 MCH 30.4 MCHC 33.7 RDW 14.6 H Plt Count 177 Seg Neutrophils % 70.9 Lymphocytes % 10.0 L Monocytes % 16.6 H Eosinophils % 2.0 Basophils % 0.5 Absolute Neutrophils 4.0 Absolute Lymphocytes 0.6 Absolute Monocytes 0.9 Absolute Eosinophils 0.1 Absolute Basophils 0.0 Sodium 132.4 L Potassium 4.0 Chloride 103 Carbon Dioxide 23 Anion Gap 6 BUN 19 Creatinine 0.96 Est GFR ( Amer) > 60 Est GFR (Non-Af Amer) > 60 Glucose 90 Calcium 8.9 C-Reactive Protein 50.6 H Qualifiers [place]INT BEING DISCHARGED WITH ANY OF THE FOLLOWING DIAGNOSIS?: No Plan Discharge Plan: Follow-up with primary care physician in 1 week. Follow-up with oncology service as scheduled. Time Spent: Less than 30 Minutes
[2017-02-13 09:38] LABS: ERYTHROCYTE SEDIMENTATION RATE 19 mm/hr (0-20)
[2017-02-13 11:19] VITALS: BP 99/62
== END 2017-02-13 12:32 | disposition home or self-care (01) | DRG 603 ==
LOC: 3N 09:49
DX: L03.113 Cellulitis of right upper limb (principal); C83.34 Diffuse large B-cell lymphoma, lymph nodes of axilla and upper limb; M84.421G Pathological fracture, right humerus, subsequent encounter for fracture with delayed healing; N40.0 Benign prostatic hyperplasia without lower urinary tract symptoms; I89.0 Lymphedema, not elsewhere classified; L98.499 Non-pressure chronic ulcer of skin of other sites with unspecified severity; Z88.0 Allergy status to penicillin; Z79.899 Other long term (current) drug therapy
CPT/HCPCS: 36415; 80048; 85025; 85610; 85652; 85730; 86140; 87040; J1335; J1650; J3370; J7030; J7060

== ENCOUNTER → 2017-02-15 | Outpatient (CLI) | payer MEDICARE, OTHER ==
--- NOTE | 2017-02-16 08:54 | RADIOLOGY REPORT (SQ) ---
EXAM DESCRIPTION: PET CT SKULL/THIGH COMPLETED DATE/TIME: 02/15/2017 7:11 pm REASON FOR STUDY: DIFFUSE LARGE B CELL LYMPHOMA C83.38 DIFFUSE LARGE B-CELL LYMPHOMA, LYMPH NODES O F MULTIPL COMPARISON: Right elbow films 01/14/2017 PET-CT 10/12/2016 RADIONUCLIDE AND DOSE: 9.9 mCi F18 FDG The route of agent administration: Intravenous FASTING BLOOD SUGAR: 112 mg/dl CONTRAST TYPE AND DOSE: No CT contrast given. TECHNIQUE: Blood glucose level was verified. Above dose of FDG was injected intravenously. 2-D seg mented attenuation correction images were obtained from the base of the skull to the midthighs. Nonc ontrast CT images were obtained for attenuation correction and fusion with emission images. CT image s were performed without oral or intravenous contrast and are not sensitive for parenchymal lesions. A series of overlapping emission PET images were obtained. Images reviewed and manipulated at [facility] work station by the radiologist. Images stored on PACS. LIMITATIONS: None. FINDINGS: HEAD AND NECK: No areas of abnormal metabolic activity in the soft tissues of the head and neck. CHEST: There has been progression of disease in the right arm the prior PET-CT 10/12/2016. On today's study, there is markedly increased uptake throughout the soft tissues from the distal forearm to the right axilla. Mass with increased activity at the right elbow is more extensive than on prior PET-C T 10/12/2016 where it was seen at the edge of the field of view. On today's study, a conglomerate mass of adenopathy is present in the right axilla on axial image 88, 9 x 4 cm in size with SUV of 16.4 There is a right chest wall/ inferior axillary lymph node on axial image 99, 2.4 x 2 cm in size with SUV 10.6. Conglomerate soft tissue mass at the distal right humerus/ elbow soft tissues SUV of 12. ABDOMEN AND PELVIS: No areas of abnormal metabolic activity in the abdomen or pelvis. Expected physi ologic activity is present in the genitourinary system and bowel. PROXIMAL LOWER EXTREMITIES: No areas of abnormal metabolic activity in the soft tissues of the lower extremities. 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 Coronary artery calcifications. Degenerative changes lumbar spine. Post prostatectomy. Multipl e benign hepatic cysts. OTHER: Blood pool activity 1 SUV, liver activity 1.1 SUV IMPRESSION: Progression of disease in the right arm, now with significant right axillary adenopathy TECHNICAL DOCUMENTATION: JOB ID: [id number] Element ID- All Rights Reserved
== END ==
LOC: RAD 15:27
PROVIDERS: ATTEND Internal Medicine
DX: C83.38 Diffuse large B-cell lymphoma, lymph nodes of multiple sites (principal)
CPT/HCPCS: 78815; A9552